=== PATIENT | male | born 1990 ===

== ENCOUNTER 2024-03-12 21:52 | Emergency (ER) | payer OTHER, SELFPAY ==
--- NOTE | ~2024-03-12 | CT_ITS ---
EXAMINATION: CT brain wo con DATE: 03/12/2024 22:39 INDICATION: syncope . TECHNIQUE: Computed tomography (CT) of the head was performed without intravenous contrast. The mA wa s adjusted according to patient size. Iterative reconstruction technique was employed. The dose-lengt h product was 681.00 mGy-cm. COMPARISON: None. FINDINGS: No acute intracranial hemorrhage or extra-axial fluid collection. No hydrocephalus, mass, or herniation. No acute ischemic infarct. Unremarkable dural venous sinus attenuation. No acute osseous abnormality. The aerated spaces are clear. IMPRESSION: No acute intracranial process. Reviewed, dictated and finalized at location K.
--- NOTE | ~2024-03-12 | XR_ITS ---
EXAMINATION: XR chest 1V portable Exam Date/Time: 03/12/2024 22:20 CDT HISTORY: syncope, Pt states he feels nauseous. Comparison: None. RESULT: Lines, tubes, and devices: None. Lungs and pleura: Clear. Cardiomediastinal silhouette: Normal. Other: No acute osseous or upper abdominal finding. IMPRESSION: No acute cardiopulmonary process. Reviewed, dictated and finalized at location K.
[2024-03-12 21:50] VITALS: BP 160/112; PULSE 134; RESP 16; TEMP 37.1; O2SAT 97
--- NOTE | 2024-03-12 21:56 | ECG_ITS ---
Test Date: 2024-03-12 22:14:07 Measurements Intervals [place] Rate: 123 P: 90 MS: 180 QRS: 59 QRSD: 102 T: 68 QT: 342 QTc: 491 Interpretive Statements SINUS TACHYCARDIA INCOMPLETE RIGHT BUNDLE BRANCH BLOCK BORDERLINE R WAVE PROGRESSION, ANTERIOR LEADS MINIMAL Q WAVES- ANTEROLAT/INF LEADS BASELINE WANDER- V1-V6 ABNORMAL ECG No previous ECG available for comparison Electronically Signed On 03-13-2024 07:14:06 CDT by Sravan Sheridan D.O.
[2024-03-12 22:18] LABS: Basophils Absolute Auto 0.1 K/mm3 (0.0-0.1); Basophils Percent Auto 0.7 % (0.2-1.2); Eosinophils Absolute Auto 0.1 K/mm3 (0-0.3); Eosinophils Percent Auto 0.5 % (0-4.4); Hematocrit 43.5 % (42.0-52.0); Hemoglobin 14.7 g/dL (14.0-18.0); Immature Granulocyte Absolute 0.05 K/mm3 (0.00-0.031); Immature Granulocyte Percent A 0.5 % (0-0.5); Lymphocytes Percent Auto 41.4 % (18.3-44.2); Mean Corpuscular HGB Conc 33.8 g/dl (32-36); Mean Corpuscular Hemoglobin 30.6 pg (26-34); Mean Corpuscular Volume 90.6 fl (80-100); Mean Platelet Volume 9.6 fl (7.4-10.4); Monocytes Absolute Auto 1.6 K/mm3 (0.1-0.6); Monocytes Percent Auto 15.1 % (2.6-8.5); Neutrophils Absolute Auto 4.3 K/mm3 (1.3-6.7); Neutrophils Percent Auto 41.8 % (45.5-73.1); Platelet Count Result 321 k/mm3 (150-375); Red Cell Distribution Width 14.1 % (11.5-14.5); White Blood Count 10.4 K/mm3 (4.5-10.0)
[2024-03-12 22:31] LABS: Albumin Level 5.4 g/dL (3.5-5.1); Alkaline Phosphatase 70 U/L (38-126); Anion Gap 24 mmol/L (4-12); Aspartate Amino Transferase 108 U/L (17-59); Bilirubin,Total 1.6 mg/dL (0.2-1.3); Blood Urea Nitrogen 18 mg/dL (9-20); Calcium 10.3 mg/dL (8.4-10.2); Carbon Dioxide 15 mmol/L (22-30); Chloride 100 mmol/L (98-107); Estimated CRCL calculation 66 ml/min; Estimated Glomerular Filt Rate 47; Glucose 171 mg/dL (65-110); Potassium 3.8 mmol/L (3.4-5.0); Sodium 139 mmol/L (137-145)
[2024-03-12 22:33] LABS: Alanine Aminotransferase 53 U/L (6-50)
[2024-03-12 22:46] LABS: Magnesium 2.4 mg/dL (1.6-2.3)
[2024-03-12 22:48] LABS: Creatine Kinase 307 U/L (55-170)
[2024-03-12] MEDS: SODIUM CHLORIDE 0.9% IV 1,000 ML 999 ML IV CONT ×2 (22:51)
[2024-03-12] MEDS: ONDANSETRON INJ 4 MG/2 ML VIAL IV PUSH (22:51)
[2024-03-12 22:57] LABS: Troponin I < 0.012 ng/mL (0.000-0.034)
[2024-03-12 23:12] LABS: Lactic Acid Reflex 4.1 mmol/L (0.7-2.0)
[2024-03-12 23:30] VITALS: BP 163/91; PULSE 104; RESP 16; O2SAT 96
[2024-03-12 23:37] LABS: Influenza A QL RT-PCR Negative (Negative); Influenza B QL RT-PCR Negative (Negative); RSV RNA, RT-PCR Negative (Negative); SARS-CoV-2 RNA PCR Negative (Negative)
--- NOTE | 2024-03-13 00:26 | PC.NURSE ---
Pt informed this RN he recently stopped drinking. Pt states he typically drinks 15-20 beers per day, last time drinking being yesterday. EDP Dr. Ramos made aware.
[2024-03-13 01:01] VITALS: BP 155/79; PULSE 102; PULSE 106; RESP 23; O2SAT 100
[2024-03-13 01:08] LABS: Add Urine Microscopic? YES; Appearance Urine Clear (Clear); Bacteria Urine None Seen /hpf; Bilirubin Urine Negative (Negative); Blood Urine 1+ (Negative); Color Urine Yellow (Yellow); Glucose Urine UA Trace mg/dL (Negative); Hyaline Casts Urine Present /lpf; Ketones Urine Trace mg/dL (Negative); Leukocyte Esterase Ur Negative LEU/UL (Negative); Need Manual Microscopic Reviewed; Nitrate Urine Negative (Negative); Protein Urine 1+ mg/dL (Negative); Squamous Epithelial Cell Urine None Seen /hpf (Few); WBC Urine 0-5 /hpf (0-3); pH Urine 5.5 (5.0-9.0)
[2024-03-13 01:38] VITALS: O2SAT 100
[2024-03-13 01:59] LABS: Reflex Lactic Acid Yes or No Add Lactic
[2024-03-13 02:23] LABS: Lactic Acid 0.8 mmol/L (0.7-2.0)
--- NOTE | 2024-03-13 02:28 | ED.GENADULT ---
HPI - General Adult General Chief complaint: Syncope Stated complaint: syncope Time Seen by Provider: 03/12/24 22:09 History of Present Illness HPI narrative: Patient is a 34-year-old gentleman presents emergency department chief complaint of syncopal episode. Patient reports he was at his new employment position and reports that was very hot patient states that he passed out for about 30 seconds he has history of hypertension also has had seizures before in the past. Patient states that he feels very hot and was diaphoretic. Patient did report that he did not drink much today as far as fluid and also add recently as yesterday was consuming a large amount of beer Related Data Allergies Allergy/AdvReac Type Severity Reaction Status Date / Time No Known Allergies Allergy Verified 03/12/24 21:55 Review of Systems Review of Systems: A 10 system review of systems was completed on the patient and is negative except for what is stated in the HPI. Nursing and ancillary documentation was reviewed. Exam Narrative: GENERAL: Well-appearing, well-nourished, and in no acute distress. HEAD: Normocephalic, 0.5 cm laceration to the bridge of the right nose. EYES: PERRLA and EOMI. ENT: Nares clear, no rhinorrhea or epistaxis. Mucous membranes moist. NECK: Supple. CHEST: Clear to auscultation. No respiratory distress. HEART: Regular rate and rhythm. No murmur heard. Normal peripheral pulses. ABDOMEN: Soft, nontender, nondistended, normal active bowel sounds. EXTREMITIES: Normal range of motion. No edema. SKIN: Warm, dry, no rash. NEURO: No focal deficits. Alert and oriented x3. PSYCH: Normal mood and affect. Course Vital Signs Vital signs: Vital Signs Temperature 37.1 C 03/12/24 21:50 Pulse Rate 134 H 03/12/24 21:50 Respiratory Rate 16 03/12/24 21:50 Blood Pressure 160/112 H 03/12/24 21:50 Pulse Oximetry 97 03/12/24 21:50 Oxygen Delivery Room Air 03/12/24 21:50 Temperature 37.1 C 03/12/24 21:50 Pulse Rate 106 H 03/13/24 01:01 Respiratory Rate 23 H 03/13/24 01:01 Blood Pressure 155/79 H 03/13/24 01:01 Pulse Oximetry 100 07/17/24 01:38 Oxygen Delivery Room Air 03/13/24 01:38 Procedures Laceration Laceration 1: Date: 03/13/24 Time: 02:30 Site: face Side (If applicable): right Size (cm): 0.5 Description: linear Depth: simple, single layer Local Anesthetic: none Pre-repair: wound explored and irrigated ====== Skin Level ====== Skin layer closed with: dermabond ====== Subcutaneous Layer ====== ====== Muscle Layer ====== ====== Tendon Layer ====== Medical Decision Making MDM Narrative Medical decision making narrative: Differential diagnosis includes dehydration, syncope, seizure, electrolyte abnormality. Laboratory studies were obtained on the patient showed white count 10.4 electrolytes showed creatinine 1.7. Patient did have mildly elevated liver enzymes bilirubin 1.6 AST was 108 ALT was 53 CK was 307 urinalysis showed trace ketones no evidence UTI COVID flu and RSV were negative Chest x-ray showed no focal infiltrate CT head showed no acute abnormality Patient did have initially an elevated lactic acid patient received fluid hydration is feeling much better and his repeat lactate was normal at 0.8 Vital Signs Vital Signs: Vital Signs Temperature 37.1 C 03/12/24 21:50 Pulse Rate 134 H 03/12/24 21:50 Respiratory Rate 16 03/12/24 21:50 Blood Pressure 160/112 H 03/12/24 21:50 Pulse Oximetry 97 03/12/24 21:50 Oxygen Delivery Room Air 03/12/24 21:50 Temperature 37.1 C 03/12/24 21:50 Pulse Rate 106 H 03/13/24 01:01 Respiratory Rate 23 H 03/13/24 01:01 Blood Pressure 155/79 H 03/13/24 01:01 Pulse Oximetry 100 03/13/24 01:38 Oxygen Delivery Room Air 03/13/24 01:38 Lab Data 03/12/24 22:00 03/12/24 22:00 L
== END 2024-03-13 02:41 | disposition home or self-care (01) ==
PROVIDERS: Emergency Provider Emergency Medicine
DX: R55 Syncope and collapse (principal); S01.21XA Laceration without foreign body of nose, initial encounter; Z20.822 Contact with and (suspected) exposure to COVID-19; W19.XXXA Unspecified fall, initial encounter
CPT/HCPCS: 12011; 36415; 70450; 71045; 80053; 81001; 82550; 83605; 83735; 84484; 85025; 87637; 93005; 96361; 96374; 99284; J2405; J7030